=== PATIENT | female | born 1950 | race Caucasian/White ===

== ENCOUNTER → 2017-07-02 | Outpatient (CLI) | payer OTHER ==
[~2017-07-02] MED LIST: ACET-709 PO; ALBU18HF INH; ATEN-105 PO; CALC-570 PO; DOXY100T PO; Focus Factor PO; GADOBUTROL 10 MMOL/10 ML VIAL ONE; HYDR25TA6 PO; LACT1CAP48 PO; MOVE FREE ULTR1 EACH PO
== END | disposition home or self-care (01) ==
LOC: CFH 13:30
PROVIDERS: ATTEND Urology
DX: C64.9 Malignant neoplasm of unspecified kidney, except renal pelvis (principal); N28.9 Disorder of kidney and ureter, unspecified; M47.894 Other spondylosis, thoracic region; K76.89 Other specified diseases of liver; K76.0 Fatty (change of) liver, not elsewhere classified; Z90.5 Acquired absence of kidney; Z90.49 Acquired absence of other specified parts of digestive tract
CPT/HCPCS: 71020; 74183; A9585